=== PATIENT | female | born 1980 | race Caucasian/White ===

== ENCOUNTER 2016-07-15 10:51 | Emergency (ER) | payer MEDICAID ==
[2016-07-15 11:58] LABS: BASOPHILS 0.3 % (0-2); EOSINOPHILS 0.7 % (0-7); HEMATOCRIT 27.3 % (36.0-48.0); HEMOGLOBIN 8.2 g/dL (12-16); IMMATURE GRANULOCYTES 0.3 % (0-5); LYMPHOCYTES 30.9 % (15-50); MCH 22.8 pg (26.0-34.0); MCV 75.8 fL (80.0-100.0); MEAN PLATELET VOLUME 10.2 fL (7.4-10.4); MONOCYTES 9.9 % (2-11); NEUTROPHILS 57.9 % (40-80); RDW 19.9 % (11.5-14.5)
[2016-07-15 12:16] LABS: PLATELET COUNT 335 10x3/uL (130-400)
[2016-07-15 12:52] LABS: APPEARANCE CLEAR (CLEAR); COLOR YELLOW (YELLOW); LEUKOCYTE ESTERASE TRACE (NEGATIVE); NITRITE NEGATIVE (NEGATIVE); SPECIFIC GRAVITY 1.025 (1.005-1.020)
[2016-07-15 12:53] LABS: BACTERIA FEW /hpf (NONE SEEN); BILIRUBIN NEGATIVE (NEGATIVE); EPITHELIAL CELLS 0-5 /hpf (0-5); GLUCOSE NEGATIVE (NEGATIVE); KETONE NEGATIVE (NEGATIVE); PROTEIN 2+ mg/dL (NEGATIVE); RED CELLS - URINE OCC /hpf (0-5); UROBILINOGEN NORMAL (NORMAL); WHITE CELLS - URINE OCC /hpf (0-5)
[2016-07-15 12:53] LABS: HCG URINE NEGATIVE (NEGATIVE)
[2016-07-15 12:54] LABS: ALBUMIN 3.3 g/dL (3.4-5.0); ALKALINE PHOSPHATASE 67 U/L (46-116); ALT (SGPT) 32 U/L (10-68); AMYLASE - SERUM 42 U/L (25-115); BILIRUBIN - TOTAL 0.17 mg/dL (0.2-1.3); CALC OSMOLALITY 288 mosm/kg (275-300); CALCIUM 8.2 mg/dL (8.5-10.1); CARBON DIOXIDE 20.7 mmol/L (21.0-32.0); CHLORIDE - SERUM 109 mmol/L (98-107); CREATININE - SERUM 0.4 mg/dL (0.6-1.3); GLUCOSE 104 mg/dL (74-106); LIPASE 104 U/L (73-393); POTASSIUM - SERUM 3.3 mmol/L (3.5-5.1); PROTEIN - SERUM 6.1 g/dL (6.4-8.2); SODIUM 142 mmol/L (136-145); UREA NITROGEN 28 mg/dL (7-18); eGFR NON AFRICAN AMERICAN > 90 mL/min (90-120)
== END 2016-07-15 17:30 | disposition home or self-care (01) ==
LOC: D.ER 10:51
PROVIDERS: Family Medicine; Nurse Practitioner Family
DX: R10.9 Unspecified abdominal pain (principal); R11.10 Vomiting, unspecified; F17.200 Nicotine dependence, unspecified, uncomplicated

== ENCOUNTER 2016-07-25 12:14 | Inpatient (IN) | payer MEDICAID ==
[~2016-07-25] VITALS: Ht 165.1 cm; Wt 63.5 kg
[2016-07-25 13:09] LABS: BASOPHILS 0.5 % (0-2); EOSINOPHILS 3.2 % (0-7); HEMATOCRIT 21.7 % (36.0-48.0); IMMATURE GRANULOCYTES 0.3 % (0-5); LYMPHOCYTES 33.9 % (15-50); MCH 22.1 pg (26.0-34.0); MCHC 28.6 g/dL (31.0-37.0); MCV 77.2 fL (80.0-100.0); MEAN PLATELET VOLUME 9.7 fL (7.4-10.4); MONOCYTES 8.2 % (2-11); NEUTROPHILS 53.9 % (40-80); PLATELET COUNT 326 10x3/uL (130-400); RBC 2.81 10x6/uL (4.00-5.40); RDW 18.6 % (11.5-14.5); WBC 7.4 10x3/uL (4.8-10.8)
[2016-07-25 13:10] LABS: HEMOGLOBIN 6.2 g/dL (12-16)
[2016-07-25 13:29] LABS: ALBUMIN 3.7 g/dL (3.4-5.0); ALKALINE PHOSPHATASE 86 U/L (46-116); ALT (SGPT) 56 U/L (10-68); AMYLASE - SERUM 105 U/L (25-115); BILIRUBIN - TOTAL 0.22 mg/dL (0.2-1.3); CALC OSMOLALITY 282 mosm/kg (275-300); CALCIUM 8.7 mg/dL (8.5-10.1); CARBON DIOXIDE 27.2 mmol/L (21.0-32.0); CHLORIDE - SERUM 108 mmol/L (98-107); CREATININE - SERUM 0.7 mg/dL (0.6-1.3); GLUCOSE 89 mg/dL (74-106); POTASSIUM - SERUM 3.5 mmol/L (3.5-5.1); SODIUM 143 mmol/L (136-145); UREA NITROGEN 9 mg/dL (7-18); eGFR NON AFRICAN AMERICAN > 90 mL/min (90-120)
[2016-07-25 13:53] LABS: UDS - AMPHET NEGATIVE QUAL (NEGATIVE); UDS - BARB NEGATIVE QUAL (NEGATIVE); UDS - BENZO POSITIVE QUAL (NEGATIVE); UDS - COCAINE POSITIVE QUAL (NEGATIVE); UDS - METH NEGATIVE QUAL (NEGATIVE); UDS - OPIATE NEGATIVE QUAL (NEGATIVE); UDS - PCP NEGATIVE QUAL (NEGATIVE); UDS - THC NEGATIVE QUAL (NEGATIVE)
[2016-07-25 14:03] LABS: APPEARANCE HAZY (CLEAR); BILIRUBIN NEGATIVE (NEGATIVE); COLOR YELLOW (YELLOW); GLUCOSE NEGATIVE (NEGATIVE); KETONE NEGATIVE (NEGATIVE); LEUKOCYTE ESTERASE NEGATIVE (NEGATIVE); NITRITE NEGATIVE (NEGATIVE); PROTEIN TRACE mg/dL (NEGATIVE); UROBILINOGEN NORMAL (NORMAL)
[2016-07-25 14:04] LABS: BACTERIA MODERATE /hpf (NONE SEEN); EPITHELIAL CELLS 0-5 /hpf (0-5); RED CELLS - URINE 0-5 /hpf (0-5); WHITE CELLS - URINE 0-5 /hpf (0-5)
[2016-07-25 14:09] LABS: INR 0.98 (0.85-1.17); PROTIME 12.9 SECONDS (11.6-15.0)
[2016-07-25 16:39] VITALS: BP 116/66; BMI 23.3
[2016-07-25] MEDS ORDERED: LITHIUM CARBON300 MG PO (17:39)
[2016-07-25] MEDS ORDERED: CLONAZEPAM2 MG/TAB PO (17:39)
--- NOTE | 2016-07-25 20:40 | NUR ---
AWAKE,ALERT.NO COMPLAINTS AT PRESENT. 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 CL IN REACH.
[2016-07-25 23:31] LABS: HEMATOCRIT 29.2 % (36.0-48.0); HEMOGLOBIN 8.8 g/dL (12-16)
--- NOTE | 2016-07-26 02:22 | NUR ---
AWAKE WIHT NO COMPLAINTS. CL IN REACH
--- NOTE | 2016-07-26 03:25 | NUR ---
[address] UNIT PRBC COMPLETED WITH NO REACTIONS NOTED.
[2016-07-26 03:48] LABS: BASOPHILS 0.5 % (0-2); EOSINOPHILS 3.8 % (0-7); HEMATOCRIT 30.5 % (36.0-48.0); HEMOGLOBIN 9.5 g/dL (12-16); IMMATURE GRANULOCYTES 0.2 % (0-5); MCH 25.3 pg (26.0-34.0); MCHC 31.1 g/dL (31.0-37.0); MEAN PLATELET VOLUME 10.2 fL (7.4-10.4); MONOCYTES 7.8 % (2-11); NEUTROPHILS 43.7 % (40-80); RDW 17.2 % (11.5-14.5); WBC 5.9 10x3/uL (4.8-10.8)
[2016-07-26 03:54] LABS: MCV 81.3 fL (80.0-100.0); PLATELET COUNT 246 10x3/uL (130-400); RBC 3.75 10x6/uL (4.00-5.40)
[2016-07-26 04:00] VITALS: BP 118/50
[2016-07-26 04:12] LABS: ALKALINE PHOSPHATASE 75 U/L (46-116); ALT (SGPT) 44 U/L (10-68); BILIRUBIN - TOTAL 0.91 mg/dL (0.2-1.3); CALC OSMOLALITY 283 mosm/kg (275-300); CARBON DIOXIDE 26.5 mmol/L (21.0-32.0); CHLORIDE - SERUM 112 mmol/L (98-107); CREATININE - SERUM 0.7 mg/dL (0.6-1.3); GLUCOSE 85 mg/dL (74-106); POTASSIUM - SERUM 3.7 mmol/L (3.5-5.1); PRE-ALBUMIN 18.7 mg/dL (18.0-35.7); SODIUM 144 mmol/L (136-145); eGFR NON AFRICAN AMERICAN > 90 mL/min (90-120)
[2016-07-26 04:13] LABS: UREA NITROGEN 6 mg/dL (7-18)
--- NOTE | 2016-07-26 05:40 | NUR ---
RESTING QUIETLY. NO DISTRESS NOTED. REMAINS NPO. CL IN REACH
--- NOTE | 2016-07-26 06:40 | NUR ---
EYES CLOSED RESPIRATIONS WITH EASE AND UNLABORED.
[2016-07-26 08:12] VITALS: BP 122/69
[2016-07-26 11:17] VITALS: BP 125/75
--- NOTE | 2016-07-26 13:40 | NUR ---
PATIENT STATED SHE HAS A VERY BAD HEADACHE AND SHE NEEDS SOMETHING OR SHE WILL THROW UP. CHECKED PATIENT'S FSBS, IT IS IN NORMAL RANGE.
--- NOTE | 2016-07-26 13:44 | NUR ---
CALLED 'S OFFICE, AVELINA RICE, DOCTOR MORGAN'S NURSE.
[2016-07-26 13:45] VITALS: Ht 165.1 cm; Wt 63.5 kg
[2016-07-26 15:25] VITALS: BP 133/75
--- NOTE | 2016-07-26 16:22 | NUR ---
BACK FROM LAB
--- NOTE | 2016-07-26 17:48 | NUR ---
CALLED FOR PATIENT'S COMPLAINT OF HEADACHE. PUT ORDERS IN ORDERED.
[2016-07-26 18:41] LABS: HEMATOCRIT 31.8 % (36.0-48.0); HEMOGLOBIN 9.9 g/dL (12-16)
[2016-07-26 20:00] VITALS: BP 118/68
--- NOTE | 2016-07-26 21:25 | NUR ---
PATIENT RESTING IN BED. ALERT AND ORIENTED. EDUCATED ON AOC DIRECTOR COMBAT OPERATIONS OFFICER USE. NO SIGNS OF DISTRESS NOTED. SCHEDULED MEDS GIVEN. SHIFT ASSESSMENT COMPLETED. BED LOW. CALL LIGHT IN REACH
[2016-07-27] VITALS: BP 133/73
[2016-07-27 04:00] VITALS: BP 132/72
--- NOTE | 2016-07-27 04:40 | NUR ---
I EXPLAINED HOW THE FINANCIAL ANALYSIS CONSULTANT PUMP WORKS TO THE PATIENT. SHE IS UPSET THAT [facility]I VELASQUEZ WILL NOT GIVE HER SOMETHING ELSE FOR PAIN. I EXPLAINED TO THE PATIENT THAT [facility] CAN ONLY GIVE MEDICATIONS THEY HAVE BEEN ORDERED AND THAT OTHER PAIN MEDICATIONS WILL NOT BE GIVEN LONG THE PATIENT IS USING A FINANCIAL ANALYSIS CONSULTANT PUMP FOR PAIN. I ALSO BROUGHT THE PATIENT JUICE PER HER REQUEST. THE PATIENT'S BED IS IN THE LOWEST POSITION AND HER CALL LIGHT IS WITHIN REACH.
[2016-07-27 04:45] LABS: BASOPHILS 0.4 % (0-2); EOSINOPHILS 5.6 % (0-7); HEMATOCRIT 29.8 % (36.0-48.0); HEMOGLOBIN 9.3 g/dL (12-16); IMMATURE GRANULOCYTES 0.2 % (0-5); LYMPHOCYTES 40.9 % (15-50); MCH 25.3 pg (26.0-34.0); MCHC 31.2 g/dL (31.0-37.0); MEAN PLATELET VOLUME 9.6 fL (7.4-10.4); MONOCYTES 8.9 % (2-11); PLATELET COUNT 231 10x3/uL (130-400); RBC 3.68 10x6/uL (4.00-5.40); RDW 17.5 % (11.5-14.5); WBC 5.2 10x3/uL (4.8-10.8)
[2016-07-27 05:08] LABS: ALBUMIN 2.9 g/dL (3.4-5.0); ALKALINE PHOSPHATASE 69 U/L (46-116); ALT (SGPT) 46 U/L (10-68); BILIRUBIN - TOTAL 0.27 mg/dL (0.2-1.3); CALC OSMOLALITY 280 mosm/kg (275-300); CALCIUM 8.3 mg/dL (8.5-10.1); CARBON DIOXIDE 27.6 mmol/L (21.0-32.0); CHLORIDE - SERUM 110 mmol/L (98-107); CREATININE - SERUM 0.6 mg/dL (0.6-1.3); GLUCOSE 102 mg/dL (74-106); POTASSIUM - SERUM 3.8 mmol/L (3.5-5.1); PROTEIN - SERUM 5.8 g/dL (6.4-8.2); SODIUM 143 mmol/L (136-145); eGFR NON AFRICAN AMERICAN > 90 mL/min (90-120)
[2016-07-27 05:18] LABS: UREA NITROGEN 2 mg/dL (7-18)
--- NOTE | 2016-07-27 08:00 | NUR ---
PATIENT RESTING QUIETLY WITH EYES CLOSED. NO SIGNS OF DISTRESS NOTED.
[2016-07-27 08:22] LABS: HEPATITIS C ANTIBODY >11.0 (0.0-0.9)
[2016-07-27] MEDS ORDERED: PROTONIX40 MG PO (10:52)
[2016-07-27 11:35] VITALS: BP 139/83
--- NOTE | 2016-07-27 11:53 | NUR ---
BROUGHT IN PATIENT'S DISCHARGE PAPERS. PATIENT STATED "MY RIDE IS NOT GOING TO BE HERE UNTIL 5." I STATED "THAT IS FINE. JUST LET ME KNOW WHEN YOUR RIDE IS HERE AND I WILL GO OVER YOUR DISCHARGE INSTRUCTIONS AND TAKE OUT YOUR IV." PATIENT STATED "DID HE WRITE ME ANY MEDICATION FOR PAIN?" I STATED "NO." SHE STATED "WELL WHAT AM I SUPPOSED TO DO FOR THIS PAIN?" I STATED "YOUR DIAGNOSIS IS A STOMACH ULCER SO HE WROTE A PERSCRIPTION FOR PROTONIX." EXPLAINED TO PATIENT ABOUT ULCERS AND WHAT PROTONIX IS. PATIENT STATED "THAT STILL DOESN'T HELP MY PAIN." I STATED "IF YOU NEED PAIN MEDICATION YOU WILL NEED TO SEE YOUR PRIMARY CARE DOCTOR." SHE STATED "MY PRIMARY CARE DOCTOR TOLD ME TO COME HERE." I STATED "YES, BUT THAT WAS NOT FOR PAIN CONTROL. AND THE DOCTOR YOU SAW HERE IS ONLY SEEING YOU IN THE HOSPITAL BECAUSE YOUR DOCTOR DOES NOT COME HERE. HE ONLY IS TREATING YOU IN THE HOSPITAL. AND NOW HE IS DISCHARGING YOU SO NOW YOU WILL SEE YOUR PRIMARY CARE DOCTOR. HE IS NOT YOUR REGULAR DOCTOR SO HE IS NOT GOING TO ORDER PAIN MEDICATION." SHE STATED "WELL IT IS THE WEEKEND AND I HAVE TO GO TO WORK ON SATURDAY SO WHAT AM I SUPPOSED TO DO?" I STATED "MA'AM I DO NOT KNOW WHAT TO TELL YOU. YOU WILL HAVE TO FOLLOW UP WITH YOUR PRIMARY CARE DOCTOR IN REGARDS TO PAIN MEDICATION."
--- NOTE | 2016-07-27 17:00 | NUR ---
D/C IV WITH CATHETER INTACT. WENT OVER DISCHARGE INSTRUCTIONS, EXPLAINED TO PATIENT THE IMPORTANCE OF NOT TAKING NSAIDS. I STATED "NSAIDS ARE LIKE ASPIRIN, IBUPROFEN.." PATIENT "SO PRETTY MUCH EVERYTHING. SO IT DOESN'T MATTER." I STATED "TYLENOL IS NOT AN NSAID." SHE STATED "YEAH BUT IT DOES NOT DO ANYTHING FOR ME." I STATED "WELL IF YOUR ARE REQUIRING PAIN MEDICATION GO SEE YOUR PRIMARY CARE DOCTOR. BUT THESE INSTRUCTIONS ARE VERY SERIOUS FOR LIFE. NSAIDS ARE PRONE TO CAUSING STOMACH BLEEDING, YOU CAN FROM THAT. I WILL PRINT YOU OFF A LIST OF NSAIDS." PATIENT STATED "NO. DO NOT WORRY ABOUT IT. IF YOU ALL REALLY CARED YOU ALL WOULD HAVE GIVEN ME A PERSCRIPTION FOR PAIN MEDICATION." I STATED "MA'AM IT IS REALLY NOT THAT WAY." PATIENT ASKED FOR CLOTHES. BROUGHT PATIENT SCRUBS AND A LIST OF NSAIDS, PATIENT ACCEPTED THE LIST. TALKED TO PATIENT ABOUT STAYING AWAY FROM FOODS THAT CAUSE ACID REFLUX.
--- NOTE | 2016-07-27 17:13 | NUR ---
PATIENT LEFT VIA WHEELCHAIR WITH SPRING MAKER.
--- NOTE | 2016-08-01 09:43 | OP ---
PATIENT NAME: PARAM SHAFFER MEDICAL RECORD: [id number] :80 LOCATION:[id number] ADMISSION DATE:07/25/16 SURGEON: MUKESH SCHWARTZ MD DATE OF OPERATION: 07/26/2016 PREOPERATIVE DIAGNOSIS: Upper gastrointestinal bleeding. POSTOPERATIVE DIAGNOSES: 1. Deep cratered posterior distal antral ulcer with exudate, but no acute bleeding. 2. Two patches of esophagitis at the midesophagus. No appreciable hiatal hernia. PROCEDURE: Esophagogastroduodenoscopy with antral biopsies. SURGEON: Mukesh Schwartz MD. ELECTRICIANS TOP HELPER: None. BLOOD LOSS: Minimal. ANESTHESIA: IV sedation. COMPLICATIONS: None. IV sedation was used by the anesthesia staff due to medication intolerance. No intervention was necessary to stop bleeding as there was no acute bleeding present. Any interventions around the ulcer, I felt, would lead to bleeding and we wanted to avoid this. ENDOSCOPIC COURSE: The patient was conveyed to the endoscopy suite on 07/26/2016. IV sedation was induced by the anesthesia staff. A bite block was inserted. A gastroscope was inserted into the mouth. It was advanced easily into the hypopharynx. The esophagus was easily intubated as were the stomach and duodenum. Upon withdrawal, retroflexed and angulus views were obtained. Antral biopsies were obtained. The endoscope was then withdrawn under direct vision. We discussed the case with Dr. Ranjan Mora. My recommendation would be that she be continued on proton pump inhibitor therapy. TRANSINT:[id number] Voice Confirmation ID: [id number] DOCUMENT ID: [id number] MUKESH SCHWARTZ MD at 0943 CC: CHARLES BUTLER MD and RANJAN MORA DO [id number] DICTATION DATE: 07/26/16 1609 PRODUCT MARKETING COORDINATOR: 07/27/16 0109 DIS IN 07/27/16 [facility] [address] [place] [address]
--- NOTE | 2016-08-01 09:43 | CN ---
PATIENT NAME:PARAM SHAFFER MEDICAL RECORD: [id number] : 80 LOCATION:[facility] ADMIT DATE: 07/25/16 ACCOUNT: [id number] CONSULTING PHYSICIAN: MUKESH SCHWARTZ MD REFERRING PHYSICIAN: RANJAN MORA DO DATE OF CONSULTATION: 07/25/2016 Consultation Note Addendum CHIEF COMPLAINT: Pain. HISTORY OF PRESENT ILLNESS: The patient has epigastric pain and tenderness, which radiates through to the back. She has recently undergone an EGD and colonoscopy by Dr. Cid. Evidently, the interaction between the patient and Dr. Ansari was unsatisfactory and the patient has been dismissed from his practice. The patient is complaining of nausea. Palpation aggravates. Nothing alleviates. She describes her pain as severe. She has been having melenic stools. She has also had hemetemesis. I am going to place her on a Zofran drip. She is already on a Protonix drip. She is complaining of pain and appears to have a narcotic tolerance and for this reason, I am going to place her on a narcotic GLAZIER STAINED GLASS for her comfort. This is a progress note addendum. For the typed portion of the progress note, please see the chart. This includes the past medical and surgical history, allergies, home medications and social history. REVIEW OF SYSTEMS: Positive for abdominal pain. No shortness of breath. Positive for nausea and vomiting. Positive for hematemesis. Positive for melanoma. Her review of systems is negative other than as is described above. PHYSICAL EXAMINATION: GENERAL: The patient appears acutely ill. Also, appears chronically ill. VITAL SIGNS: Reviewed. The entire physical examination was performed with the presence of a female nurse. HEAD: External ears appear normal. EYES: Extraocular movements are intact. NECK: Trachea is midline. CHEST: No intercostal retractions. PULMONARY: Nonlabored, no stridor. ABDOMEN: Tenderness with guarding in the epigastrium. No peritonitis to percussion. EXTREMITIES: There is peripheral pallor. INTEGUMENT: No rash. PSYCHIATRIC: Anxious affect. NEUROLOGIC: Answers questions appropriately, moves all extremities well. BACK: No thoracic kyphosis. LYMPHATICS: No lymphangitic streaking of the exposed extremities. IMPRESSION: Upper gastrointestinal bleeding with blood loss anemia, which is acute blood loss anemia requiring transfusions. CONSULT REPORT [id number] PARAM SHAFFER PLAN: As described above. EGD with control of hemorrhage tomorrow. The risks, possible complications and alternatives to procedure were explained to the patient. She elects to proceed. Discussion specifically included, but was not limited to, bleeding requiring emergency reoperation, infection, intestinal injury as well as an open procedure. TRANSINT:[id number] Voice Confirmation ID: [id number] DOCUMENT ID: [id number] MUKESH SCHWARTZ MD at 0943 CC: [id number] DICTATION DATE: 07/25/16 1809 TEST DECK SUPERVISOR: 07/26/16 0043 DIS IN 07/27/16 [facility] [address] [place] [address]
== END 2016-07-27 15:13 | disposition home or self-care (01) | DRG 812 ==
LOC: D.ER 12:14 → D.MS 15:25
PROVIDERS: Emergency Medicine; Nurse Practitioner Family; Surgery; ADMIT Family Medicine
PROC: 0DB68ZX Excision of Stomach, Via Natural or Artificial Opening Endoscopic, Diagnostic (ICD-10-PCS; principal; 2016-07-26 08:00)
DX: D64.9 Anemia, unspecified (principal); K92.2 Gastrointestinal hemorrhage, unspecified; K25.9 Gastric ulcer, unspecified as acute or chronic, without hemorrhage or perforation; K29.80 Duodenitis without bleeding; K52.9 Noninfective gastroenteritis and colitis, unspecified; F41.9 Anxiety disorder, unspecified; F17.200 Nicotine dependence, unspecified, uncomplicated; I10 Essential (primary) hypertension; K20.9 Esophagitis, unspecified; F14.90 Cocaine use, unspecified, uncomplicated

== ENCOUNTER 2017-06-08 21:08 | Emergency (ER) | payer MEDICAID ==
[2016-07-26 13:45] VITALS: BMI 23.2
[~2017-06-08 21:08] MED LIST: CLONAZEPAM2 MG/TAB PO; LITHIUM CARBON300 MG PO; PROTONIX40 MG PO
== END 2017-06-08 23:15 | disposition home or self-care (01) ==
LOC: D.ER 21:08
DX: S80.12XA Contusion of left lower leg, initial encounter (principal); S80.11XA Contusion of right lower leg, initial encounter; V79.9XXA Bus occupant (driver) (passenger) injured in unspecified traffic accident, initial encounter; Y93.89 Activity, other specified; Y92.410 Unspecified street and highway as the place of occurrence of the external cause; G43.909 Migraine, unspecified, not intractable, without status migrainosus; R07.89 Other chest pain